=== PATIENT | female | born 1990 | race Caucasian/White ===

== ENCOUNTER 2018-01-31 05:36 | Emergency (ER) | payer BC ==
[~2018-01-31 05:36] MED LIST: ALB0.5 INH; AMO500 PO; AMOX-559 PO; ARI10 PO; CEP500 PO; CYC10 PO; DIVA500T98 PO; ETHI1TAB25 PO; FLUO-202 PO; FLUO40CA76 PO; GABA-549 PO; HYDR-4228 PO; HYDR-4309 PO; IBU800 PO; LITC450 PO; LITH300T18 PO; LITH600C6 PO; LOR1 PO; LOR5 PO; MON10 PO; MONT10TA22 PO; MULT-806 PO; NO RTN MEDS; NOR5/325 PO; ONDA4TAB PO; OXCA600T32 PO; PHEN240S3 PO; PROG100C PO; SILV20CR20 TP; TRA50 PO; ZOL5 PO
--- NOTE | 2018-01-31 05:50 | ER Report ---
History and Physical Time Seen By MD: 05:50 Hx. of Stated Complaint: reports abd pain and diarrhea x 48 hours, has been nauseated all night. trying to drink water but reports full feeling and then diarrhea after she drinks water (JESSIE KUNZ MD) HPI/ROS CHIEF COMPLAINT: Abdominal pain HISTORY OF PRESENT ILLNESS: This is a 27 year old female. She is having abdominal pain. Described as periumbilical and some in the epigastric area. Mild pain about 48 hours ago when she started having diarrhea and some nausea. This eased up and she was able to go to work. She did not eat anything at work and continued to have mild problems. At home, at dinner and had immediate return of pain and watery diarrhea. Nausea has been severe. Has had one episode of vomiting tonight, which occurred while sleeping. She says it was more of a bunch of acid coming up and her esophagus and throat area have burning after this. Continued watery diarrhea all night. No blood in stool. No pain with urination and no blood in urine. Feels dehydrated this morning. Pain radiates to low back. No fevers or chills with this. No shortness of breath and no chest pain other than the acid feeling she described. She works at [employer] and is unaware of any sick contacts there or with friends or family. She does not think that she has had any bad food or drink. has eaten the same foods and is not ill. No history of bowel problems in the past and no surgeries. (JESSIE KUNZ MD) Allergies: Coded Allergies: No Known Drug Allergies (Unverified , 01/31/18) Home Meds Active Scripts Ondansetron (ZOFRAN ODT) 4 Mg Tab.rapdis, 4 MG PO Q8H Y for NAUSEA, #20 TAB.VIKA 0 Refills Prov:NUBIA FINE MD 01/31/18 Dicyclomine Hcl (DICYCLOMINE HCL) 20 Mg Tablet, 20 MG PO QID Y for diarrhea, # 20 TAB 0 Refills Prov:NUBIA FINE MD 01/31/18 Ondansetron (ZOFRAN ODT) 4 Mg Tab.rapdis, 4 MG PO Q6H Y for NAUSEA/VOMITING, # 20 TAB.VIKA Prov:[employer]- 11/09/17 Reported Medications Gabapentin (GABAPENTIN) 300 Mg Capsule, 300 MG PO QID, CAPSULE 11/09/17 [place] Carbonate (LITHIUM CARBONATE) 450 Mg Tabcr, 450 MG PO BID 11/09/17 Divalproex Sodium (DEPAKOTE) 500 Mg Tablet.dr, 800 MG PO BID, TAB 11/09/17 Progesterone,Micronized (PROGESTERONE) 100 Mg Capsule, 100 MG PO BID, CAPSULE 11/09/17 Past Medical/Surgical History Asthma, seizure history, infertility issues, depression. (JESSIE KUNZ MD) Reviewed Nurses Notes: Yes (EJSSIE KUNZ MD) Hx Smoking: Yes (3 DAILY) Hx Substance Use Disorder: Yes ("etoh, huffing glue.") Hx Alcohol Use: Yes (4-5 WEEKLY) (JESSIE KUNZ MD) Constitutional Vital Sign - Last 24 Hours 01/31/18 01/31/18 05:42 09:26 Temp 98.5 Pulse 84 81 Resp 16 14 B/P (MAP) 133/90 118/80 (93) Pulse Ox 94 96 O2 Delivery Room Air Intake and Output 01/31/18 01/31/18 02/01/18 15:00 23:00 07:00 Intake Total 800 ml Balance 800 ml (NUBIA FINE MD) Physical Exam General Appearance: The patient is alert. Acute distress due to pain. Non- toxic in appearance. Eyes: Pupils are equal, round. No pallor, injection or icterus. ENT: Mucous membranes are a little dry. Otherwise normal oral mucosa. Posterior oropharynx is normal. Neck: Supple and non tender. No lymphadenopathy. Respiratory: Lungs are clear to auscultation. Cardiovascular: Regular rate and rhythm. No murmurs, gallops or rubs. Normal capillary refill. Gastrointestinal: Abdomen is soft. Tenderness in the periumbilical area and epigastric area. Nondistended, but she feels bloated. No rebound or guarding. Hyperactive bowel sounds. No CVA tenderness with percussion. Neurological: Alert and oriented x3. Skin: Warm and dry. Musculoskeletal: Mild low back pain with palpation throughout the lumbar region. DIFFERENTIAL DIAGNOSIS: After history and physical exam, differential diagnosis was considered for abdominal pain including but not limited to appendicitis, cholecystitis, pancreatitis, gastroenteritis, diverticulitis, and urinary infection. (JESSIE KUNZ MD) Medical Decision Making Data Points Result Diagram: 01/31/18 0610 01/31/18 0610 Laboratory Hematology Test 01/31/18 06:10 Red Blood Count 5.41 M/uL (4.17-5.56) Mean Corpuscular Volume 84.3 fL (80.0-96.0) Mean Corpuscular Hemoglobin 28.7 pg (26.0-33.0) Mean Corpuscular Hemoglobin Concent 34.0 g/dL (32.0-36.0) Red Cell Distribution Width 13.4 % (11.5-14.5) Mean Platelet Volume 7.8 fL (7.2-11.1) Neutrophils (%) (Auto) 76.4 % (39.4-72.5) Lymphocytes (%) (Auto) 16.5 % (17.6-49.6) Monocytes (%) (Auto) 5.8 % (4.1-12.4) Eosinophils (%) (Auto) 1.1 % (0.4-6.7) Basophils (%) (Auto) 0.2 % (0.3-1.4) Nucleated RBC Relative Count (auto) 0.0 /100WBC Neutrophils # (Auto) 10.2 K/uL (2.0-7.4) Lymphocytes # (Auto) 2.2 K/uL (1.3-3.6) Monocytes # (Auto) 0.8 K/uL (0.3-1.0) Eosinophils # (Auto) 0.2 K/uL (0.0-0.5) Basophils # (Auto) 0.0 K/uL (0.0-0.1) Nucleated RBC Absolute Count (auto) 0.00 K/uL Urine Color Yellow Urine Clarity Slightly-cloudy Urine pH 5.0 pH (4.8-9.5) Urine Specific [place] 1.017 Urine Protein Negative mg/dL (NEGATIVE) Urine Glucose (UA) Negative mg/dL (NEGATIVE) Urine Ketones Negative mg/dL (NEGATIVE) Urine Blood Negative (NEGATIVE) Urine Nitrite Negative (NEGATIVE) Urine Bilirubin Negative (NEGATIVE) Urine Urobilinogen Negative mg/dL (0.2-1.9) Urine Leukocyte Esterase Negative (NEGATIVE) Urine RBC <1 /HPF (0-2/HPF) Urine WBC 3 /HPF (0-5/HPF) Urine Squamous Epithelial Cells Many /LPF (</=FEW) Urine Bacteria Negative /HPF (NONE-FEW) Urine Mucus None /HPF (NONE-FEW) Sodium Level 138 mmol/L (137-145) Potassium Level 3.8 mmol/L (3.5-5.0) Chloride Level 104 mmol/L (98-107) Carbon Dioxide Level 22 mmol/L (22-31) Blood Urea Nitrogen 12 mg/dl (7-18) Creatinine 0.80 mg/dl (0.52-1.04) Glomerular Filtration Rate Calc > 60.0 Random Glucose 96 mg/dl (75-110) Calcium Level 8.9 mg/dl (8.4-10.2) Total Bilirubin 0.4 mg/dl (0.2-1.3) Aspartate Amino Transf (AST/SGOT) 27 U/L (0-35) Alanine Aminotransferase (ALT/SGPT) 44 U/L (0-56) Alkaline Phosphatase 73 U/L (0-126) C-Reactive Protein 1.3 mg/dl (<1.0) Total Protein 7.4 gm/dl (6.3-8.2) Albumin 3.8 g/dl (3.5-5.0) Amylase Level 60 U/L (0-110) Lipase 56 U/L (23-300) Human Chorionic Gonadotropin, Qual Negative (NEGATIVE) Chemistry Test 01/31/18 06:10 White Blood Count 13.4 k/uL (4.5-11.0) Red Blood Count 5.41 M/uL (4.17-5.56) Hemoglobin 15.5 g/dL (12.0-16.0) Hematocrit 45.6 % (34.0-47.0) Mean Corpuscular Volume 84.3 fL (80.0-96.0) Mean Corpuscular Hemoglobin 28.7 pg (26.0-33.0) Mean Corpuscular Hemoglobin Concent 34.0 g/dL (32.0-36.0) Red Cell Distribution Width 13.4 % (11.5-14.5) Platelet Count 292 K/uL (150-450) Mean Platelet Volume 7.8 fL (7.2-11.1) Neutrophils (%) (Auto) 76.4 % (39.4-72.5) Lymphocytes (%) (Auto) 16.5 % (17.6-49.6) Monocytes (%) (Auto) 5.8 % (4.1-12.4) Eosinophils (%) (Auto) 1.1 % (0.4-6.7) Basophils (%) (Auto) 0.2 % (0.3-1.4) Nucleated RBC Relative Count (auto) 0.0 /100WBC Neutrophils # (Auto) 10.2 K/uL (2.0-7.4) Lymphocytes # (Auto) 2.2 K/uL (1.3-3.6) Monocytes # (Auto) 0.8 K/uL (0.3-1.0) Eosinophils # (Auto) 0.2 K/uL (0.0-0.5) Basophils # (Auto) 0.0 K/uL (0.0-0.1) Nucleated RBC Absolute Count (auto) 0.00 K/uL Urine Color Yellow Urine Clarity Slightly-cloudy Urine pH 5.0 pH (4.8-9.5) Urine Specific [place] 1.017 Urine Protein Negative mg/dL (NEGATIVE) Urine Glucose (UA) Negative mg/dL (NEGATIVE) Urine Ketones Negative mg/dL (NEGATIVE) Urine Blood Negative (NEGATIVE) Urine Nitrite Negative (NEGATIVE) Urine Bilirubin Negative (NEGATIVE) Urine Urobilinogen Negative mg/dL (0.2-1.9) Urine Leukocyte Esterase Negative (NEGATIVE) Urine RBC <1 /HPF (0-2/HPF) Urine WBC 3 /HPF (0-5/HPF) Urine Squamous Epithelial Cells Many /LPF (</=FEW) Urine Bacteria Negative /HPF (NONE-FEW) Urine Mucus None /HPF (NONE-FEW) Glomerular Filtration Rate Calc > 60.0 Calcium Level 8.9 mg/dl (8.4-10.2) Total Bilirubin 0.4 mg/dl (0.2-1.3) Aspartate Amino Transf (AST/SGOT) 27 U/L (0-35) Alanine Aminotransferase (ALT/SGPT) 44 U/L (0-56) Alkaline Phosphatase 73 U/L (0-126) C-Reactive Protein 1.3 mg/dl (<1.0) Total Protein 7.4 gm/dl (6.3-8.2) Albumin 3.8 g/dl (3.5-5.0) Amylase Level 60 U/L (0-110) Lipase 56 U/L (23-300) Human Chorionic Gonadotropin, Qual Negative (NEGATIVE) Urinalysis Test 01/31/18 06:10 Urine Color Yellow Urine Clarity Slightly-cloudy Urine pH 5.0 pH (4.8-9.5) Urine Specific [place] 1.017 Urine Protein Negative mg/dL (NEGATIVE) Urine Glucose (UA) Negative mg/dL (NEGATIVE) Urine Ketones Negative mg/dL (NEGATIVE) Urine Blood Negative (NEGATIVE) Urine Nitrite Negative (NEGATIVE) Urine Bilirubin Negative (NEGATIVE) Urine Urobilinogen Negative mg/dL (0.2-1.9) Urine Leukocyte Esterase Negative (NEGATIVE) Urine RBC <1 /HPF (0-2/HPF) Urine WBC 3 /HPF (0-5/HPF) Urine Squamous Epithelial Cells Many /LPF (</=FEW) Urine Bacteria Negative /HPF (NONE-FEW) Urine Mucus None /HPF (NONE-FEW) (NUBIA FINE MD) EKG/Imaging Imaging FACILITY: [facility] - [place] PATIENT NAME: Salud Benito : 1990 MR: [id number] V: [id number] EXAM DATE: [id number] ORDERING PHYSICIAN: JESSIE KUNZ TECHNOLOGIST: Location: [facility] - [place] Patient: Salud Benito : 1990 Visit/Account:[id number] Date of Sevice: 01/31/2018 ABDOMEN/PELVIS WITH CONTRAST HISTORY: abdominal pain TECHNIQUE: Axial images were obtained through the abdomen and pelvis with intravenous contrast . One of the following dose optimization techniques was utilized in the performance of this exam: automated exposure control; adjustment of the mA and/or kv according to patient size; or use of iterative reconstruction technique. Specific details can be referenced in the facility's radiology CT exam operational policy. CONTRAST: 75 mL of Isovue-370 COMPARISON: CT abdomen/pelvis 06/08/2010 FINDINGS: Visualized lung bases: Negative. Hepatobiliary: Negative. Spleen: Negative. Adrenals: Negative. Pancreas: Negative. Kidneys/ureters/bladder: Negative. Bowel/peritoneum/mesentery: Normal appendix. No bowel obstruction, free air or ascites. No acute inflammatory change surrounding the colon. Vessels: Negative. Lymph nodes: Negative. Pelvic genitourinary: Negative. Bones/body wall: Negative. Other findings: None significant IMPRESSION: 1. No acute inflammatory process. No concerning mass or lymphadenopathy. Report Dictated By: Ronak Richardson MD at 01/31/2018 8:09 AM Report E-Signed By: Ronak Richardson MD at 01/31/2018 8:16 AM WSN:[id number] (NUBIA FINE MD) ED Course/Re-evaluation Clinical Indication for ER IV: Hydration, IV Access (JESSIE KUNZ MD) ED Course 01/31/2018 7:33:37 am patient with abdominal pain and diarrhea 48 hours. Patient does work in healthcare setting. Patient was signed out to me at 7 AM. Plan at this time was blood work and CT scan of the abdomen and pelvis which is pending. 01/31/2018 9:04:13 am patient was unable to give a stool sample. She reports the abdominal cramping is back. CT scan was unremarkable. Plan will be discharge home with antidiarrheal medication and antinausea medication and work note for 48 hours. Decision to Disposition Date: Jan 31, 2018 Decision to Disposition Time: 09:04 (NUBIA FINE MD) Depart Departure Latest Vital Signs Vital Signs Date Time Temp Pulse Resp B/P (MAP) Pulse Ox O2 Delivery O2 Flow Rate FiO2 01/31/18 09:26 81 14 118/80 (93) 96 Room Air 01/31/18 05:42 98.5 (NUBIA FINE MD) Impression: Primary Impression: Diarrhea Condition: Improved Disposition: HOME OR SELF-CARE New Scripts Ondansetron (ZOFRAN ODT) 4 Mg Tab.rapdis 4 MG PO Q8H Y for NAUSEA, #20 TAB.VIKA 0 Refills Prov: NUBIA FINE MD 01/31/18 Dicyclomine Hcl (DICYCLOMINE HCL) 20 Mg Tablet 20 MG PO QID Y for diarrhea, #20 TAB 0 Refills Prov: NUBIA FINE MD 01/31/18 Departure Forms: ER Transition Record, Medications Reconciliation, Off Work/ School Form, School or Work Release?: Work Number of days to be released: 2 Patient Portal Information Patient Instructions: Acute Diarrhea (ED) Additional Instructions: Bring your stool sample along with the prescription back to the outpatient lab for stool testing and culture. Problem Qualifiers Primary Impression: Diarrhea Diarrhea type: unspecified type Qualified Codes: R19.7 - Diarrhea, unspecified JESSIE KUNZ MD Jan 31, 2018 05:50 NUBIA FINE MD Jan 31, 2018 07:35
[2018-01-31] MEDS ORDERED: NS(*) 0.9% 1000 ML BAG 1,000 ML IV ONE (05:57)
[2018-01-31] MEDS ORDERED: PANTOPRAZOLE SOD 40 MG IV VIAL IVP ONE (06:00)
[2018-01-31] MEDS ORDERED: ONDANSETRON 4 MG/2 ML VIAL IVP ONE (06:00)
[2018-01-31] MEDS ORDERED: MORPHINE 4 MG/ML SDV IVP ONE ×2 (06:00→09:10)
[2018-01-31] MEDS ORDERED: IOPAMIDOL 76% 75 ML INFUS BTL 75 ML ONE (06:13)
[2018-01-31 06:30] LABS: PLATELET COUNT, AUTOMATED 292 K/uL (150-450)
--- NOTE | 2018-01-31 08:20 | RADIOLOGY IMAGING REPORT ---
FACILITY: [facility] - [place] PATIENT NAME: Salud Benito : 1990 MR: [id number] V: [id number] EXAM DATE: ORDERING PHYSICIAN: JESSIE KUNZ TECHNOLOGIST: Location: [facility] - [place] Patient: Salud Benito : 1990 Visit/Account:[id number] Date of Sevice: 01/31/2018 ABDOMEN/PELVIS WITH CONTRAST HISTORY: abdominal pain TECHNIQUE: Axial images were obtained through the abdomen and pelvis with intravenous contrast . One of the following dose optimization techniques was utilized in the performance of this exam: automate d exposure control; adjustment of the mA and/or kv according to patient size; or use of iterative rec onstruction technique. Specific details can be referenced in the facility's radiology CT exam operati onal policy. CONTRAST: 75 mL of Isovue-370 COMPARISON: CT abdomen/pelvis 06/08/2010 FINDINGS: Visualized lung bases: Negative. Hepatobiliary: Negative. Spleen: Negative. Adrenals: Negative. Pancreas: Negative. Kidneys/ureters/bladder: Negative. Bowel/peritoneum/mesentery: Normal appendix. No bowel obstruction, free air or ascites. No acute i nflammatory change surrounding the colon. Vessels: Negative. Lymph nodes: Negative. Pelvic genitourinary: Negative. Bones/body wall: Negative. Other findings: None significant IMPRESSION: 1. No acute inflammatory process. No concerning mass or lymphadenopathy. Report Dictated By: Ronak Richardson MD at 01/31/2018 8:09 AM Report E-Signed By: Ronak Richardson MD at 01/31/2018 8:16 AM WSN:[id number]
[2018-01-31] MEDS ORDERED: DICY20TA70 PO (09:06)
[2018-01-31] MEDS ORDERED: ONDA4TAB PO (09:06)
[2018-01-31 09:26] VITALS: BP 118/80
== END 2018-01-31 09:26 | disposition home or self-care (01) ==
LOC: ER 06:26
DX: R19.7 Diarrhea, unspecified (principal)
CPT/HCPCS: 74177; 81001; 82150; 83690; 84703; 85025; 86140; 96361; 96374; 96375; 96376; 99284; C9113; J2270; J2405; J7030; Q9967; 82040; 82247; 82310; 82374; 82435; 82565; 82947; 84075; 84132; 84155; 84295; 84450; 84460; 84520